=== PATIENT | male | born 1980 | race Caucasian/White ===

== ENCOUNTER 2016-12-18 21:12 | Emergency (ER) | payer SELFPAY ==
[2016-12-18 21:23] VITALS: BP 136/92
[2016-12-18 21:54] LABS: CHLORIDE,CL 105 mmol/L (98-110); SODIUM,NA 137 mmol/L (136-146)
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
== END 2016-12-18 23:52 ==
LOC: MW.ED 21:12
DX: S01.81XA Laceration without foreign body of other part of head, initial encounter (principal); V29.88XA Motorcycle rider (driver) (passenger) injured in other specified transport accidents, initial encounter; Y92.410 Unspecified street and highway as the place of occurrence of the external cause
CPT/HCPCS: 36415; 70450; 70486; 71010; 72125; 80053; 85025; 99285; G0480; 99284; G0390

== ENCOUNTER 2017-06-15 07:46 | Day surgery (SDC) | payer OTHER ==
[~2017-06-15 07:46] MED LIST: Bupivacaine 0.5% 10 ML SDV ONE; Lidocaine 2% 5 ML SDV ONE; Midazolam 1 MG/ML 2 ML SDV ONE; Ondansetron 4 MG/2 ML SDV ONE; Propofol 200 MG/20 ML SDV ONE; Rocuronium 10 MG/ML 10 ML Syringe ONE; Succinylcholine/Normal Saline 200 MG/10 ML Syringe ONE; ceFAZolin 1 GM Vial ONE; fentaNYL 100 MCG/2 ML SDV ONE
[2017-06-15] MEDS ORDERED: Lactated Ringers 1,000 ML IV SCH ×2 (08:00→09:15)
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
[2017-06-15] MEDS ORDERED: ceFAZolin 1 GM Vial ONE (08:22)
[2017-06-15] MEDS ORDERED: Sodium Chloride 0.9% 20 ML ONE (08:22)
[2017-06-15] MEDS ORDERED: fentaNYL 100 MCG/2 ML SDV IVPUSH PRN (08:59)
[2017-06-15] MEDS ORDERED: Acetaminophen/HYDROcodone 325-5 MG Tab PO PRN (09:05)
[2017-06-15] MEDS ORDERED: Ondansetron 4 MG/2 ML SDV IVPUSH PRN (09:05)
[2017-06-15] MEDS ORDERED: Morphine 10 MG/ML Syringe IVPUSH PRN (09:05)
--- NOTE | 2017-06-15 09:10 | PCM.OPNOTE ---
- General Post-Op/Procedure Note Date of Surgery/Procedure: 06/15/17 Operative Procedure(s): Repair incarcerated umbilical hernia Pre Op Diagnosis: Incarcerated umbilical hernia Post-Op Diagnosis: Same Anesthesia Technique: General ET Tube (ASA II) Primary Surgeon: Sheldon Hinkle Fluid Replacement, Intraop: 1,000 EBL in mLs: 5 Condition: Good Free Text/Narrative:: Dictation [id number] CPT CODE 37016
--- NOTE | 2017-06-15 09:37 | PCM.POSTAN ---
POST ANESTHESIA ASSESSMENT - MENTAL STATUS Mental Status: Alert, Oriented - RESPIRATORY Respiratory Status: Respiratory Rate WNL, Airway Patent, O2 Saturation Stable - CARDIOVASCULAR CV Status: Pulse Rate WNL, Blood Pressure Stable - GASTROINTESTINAL GI Status: No Symptoms - PAIN Pain Score: 1 - POST OP HYDRATION Hydration Status: Adequate & Stable - OBSERVATIONS Free Text/Narrative:: no anesthesia problems
[2017-06-15 10:21] VITALS: BP 108/67
--- NOTE | 2017-06-15 17:35 | OR ---
SURGEON: Sheldon Hinkle M.D. DATE OF PROCEDURE: 06/15/2017 OPERATION PERFORMED: Repair of incarcerated umbilical hernia. ANESTHESIA: General endotracheal. ASA CLASSIFICATION: II. PREOPERATIVE DIAGNOSIS: Incarcerated umbilical hernia. POSTOPERATIVE DIAGNOSIS: Incarcerated umbilical hernia. ESTIMATED BLOOD LOSS: 5 mL. FLUID REPLACEMENT: 1000 mL of crystalloid. DESCRIPTION OF PROCEDURE: The patient was taken to the operating room and placed on the operating table in the supine position. Time-out was called for appropriate identification of the patient and procedure. Thigh-high TEDs and sequential compression boots were placed. Following satisfactory attainment of general endotracheal anesthesia, the abdomen was prepped with DuraPrep solution. Sterile drapes were applied. The skin just to the right of the umbilicus was infiltrated with 0.5% Marcaine solution. A skin incision was made and deepened through the subcutaneous tissue obtaining hemostasis with the use of electrocautery. Dissection was carried down to the fascial defect, which was circumferentially dissected free, reducing the contents. Once that was accomplished, the defect was repaired with multiple interrupted 0 Ethibond sutures. All sutures were placed under direct vision and held with a hemostat. Once all sutures had been placed, they were tied down. The patient was then given a Valsalva maneuver to 40 cm of water. The repair was solid. The wound was inspected for hemostasis and small bleeding sites were electrocoagulated. The subcutaneous tissue was reapproximated with running 3-0 Vicryl. The skin edges were reapproximated with subcuticular 4-0 Monocryl, reinforced with Steri-Strips. Sterile pressure dressing with a pair of sterile Tegaderm pad was placed as a dressing. Sponge, needle, and instrument counts were all correct. The patient tolerated the procedure well. Following emergence from anesthesia and extubation, he was taken to recovery room in stable condition. DI / KARLOS /[id number]
== END 2017-06-15 11:05 | disposition home or self-care (01) ==
LOC: MW.SDS 07:46
PROVIDERS: ATTEND Surgery
DX: K42.0 Umbilical hernia with obstruction, without gangrene (principal); F17.210 Nicotine dependence, cigarettes, uncomplicated; E66.9 Obesity, unspecified; Z68.33 Body mass index [BMI] 33.0-33.9, adult; Z96.22 Myringotomy tube(s) status; Z82.49 Family history of ischemic heart disease and other diseases of the circulatory system; Z83.3 Family history of diabetes mellitus; Z98.890 Other specified postprocedural states
CPT/HCPCS: 49587; A9270; J0690; J2250; J2405; J3010; J7120; 00830; J2704

== ENCOUNTER 2017-10-21 06:30 | Emergency (ER) | payer OTHER ==
[2017-10-21 06:45] VITALS: BP 131/76
[2017-10-21] MEDS ORDERED: Sodium Chloride 0.9% 10 ML Syringe FLUSH PRN (06:47)
[2017-10-21] MEDS ORDERED: Sodium Chloride 0.9% 1,000 ML IV ONE (06:47)
[2017-10-21] MEDS ORDERED: Sodium Chloride 0.9% 2.5 ML Syringe FLUSH PRN (06:47)
--- NOTE | 2017-10-21 06:49 | EDM.PDOC ---
ED HPI GENERAL MEDICAL PROBLEM - General Chief Complaint: Abdominal Pain Stated Complaint: LEFT SIDE PAIN AND BLOOD IN STOOL Time Seen by Provider: 10/21/17 06:46 - History of Present Illness INITIAL COMMENTS - FREE TEXT/NARRATIVE: HISTORY AND PHYSICAL: History of present illness: Patient 37-year-old white male presents with a concern of left-sided abdominal pain with intermittent blood per rectum over. If several months he denies fever chills nausea vomiting, or other concerns he denies history of known diverticular disease he denies urinary symptoms denies weight loss. Review of systems: As per history of present illness and below otherwise all systems reviewed and negative. Past medical history: As per history of present illness and as reviewed below otherwise noncontributory. Surgical history: As per history of present illness and as reviewed below otherwise noncontributory. Social history: No reported history of drug or alcohol abuse. Family history: As per history of present illness and as reviewed below otherwise noncontributory. Physical exam: HEENT: Atraumatic, normocephalic, pupils reactive, negative for conjunctival pallor or scleral icterus, mucous membranes moist, throat clear, neck supple, nontender, trachea midline. Lungs: Clear to auscultation, breath sounds equal bilaterally, chest nontender. Heart: S1S2, regular, negative for clicks, rubs, or JVD. Abdomen: Soft, nondistended, nontender. Negative for masses or hepatosplenomegaly. Negative for costovertebral tenderness. Pelvis: Stable nontender. Genitourinary: Deferred. Rectal: Deferred. Extremities: Atraumatic, negative for cords or calf pain. Neurovascular unremarkable. Neuro: Awake, alert, oriented. Cranial nerves II through XII unremarkable. Cerebellum unremarkable. Motor and sensory unremarkable throughout. Exam nonfocal. Diagnostics: CBC CMP PT/INR CT abdomen and pelvis Therapeutics: saline 1 L bolus Impression: #1 left-sided abdominal pain #2 intermittent rectal bleeding Definitive disposition and diagnosis as appropriate pending reevaluation and review of above. Left Lower Abdominal Pain Score (Numeric/FACES): 6 - Related Data Allergies Allergy/AdvReac Type Severity Reaction Status Date / Time No Known Allergies Allergy Verified 10/21/17 06:45 Home Meds: Home Meds . [No Known Home Meds] 02/23/15 [History] Past Medical History - Past Health History Medical/Surgical History: Denies Medical/Surgical History HEENT History: Reports: Other (See Below) Other HEENT History: wears glasses Musculoskeletal History: Reports: Fracture Other Musculoskeletal History: hx fx ribs, wrist and jaw Endocrine/Metabolic History: Reports: Obesity/BMI 30+ - Infectious Disease History Infectious Disease History: Reports: Chicken Pox - Past Surgical History HEENT Surgical History: Reports: Myringotomy w Tube(s), Other (See Below) Other HEENT Surgeries/Procedures: surgery for fx jaw with plating Musculoskeletal Surgical History: Reports: Other (See Below) Other Musculoskeletal Surgeries/Procedures:: leo bunionectomy, ORIF left elbow fx. Social & Family History - Family History Family Medical History: Noncontributory - Tobacco Use Smoking Status *Q: Current Some Day Smoker Years of Tobacco use: 20 Packs/Tins Daily: 0.1 - Caffeine Use Caffeine Use: Reports: None Caffeine Use Comment: 3cups/day - Alcohol Use Days Per Week of Alcohol Use: 1 Number of Drinks Per Day: 1 Total Drinks Per Week: 1 - Recreational Drug Use Recreational Drug Use: No ED ROS GENERAL - Review of Systems Review Of Systems: ROS reveals no pertinent complaints other than HPI. ED EXAM, GENERAL - Physical Exam Exam: See Below (See dictation) Course - Vital Signs Last Recorded V/S: Last Vital Signs Temp 36.8 C 10/21/17 06:43 Pulse 64 10/21/17 06:43 Resp 18 10/21/17 06:43 BP 131/76 10/21/17 06:43 Pulse Ox 96 10/21/17 06:43 - Orders/Labs/Meds Orders: Active Orders 24 hr Category Date Time Status Abdomen Pelvis wo Cont [CT] Stat Exams 10/21/17 06:47 Taken UA W/MICROSCOPIC [URIN] Stat Lab 10/21/17 08:35 Ordered Sodium Chloride 0.9% [Saline Flush] Med 10/21/17 06:47 Active 10 ml FLUSH ASDIRECTED PRN Sodium Chloride 0.9% [Saline Flush] Med 10/21/17 06:47 Active 2.5 ml FLUSH ASDIRECTED PRN Saline Lock Insert [OM.PC] Stat Oth 10/21/17 06:46 Ordered Medication Orders Sodium Chloride (Saline Flush) 10 ml FLUSH ASDIRECTED PRN PRN Reason: Keep Vein Open Last Admin: 10/21/17 07:18 Dose: 10 ml Sodium Chloride (Saline Flush) 2.5 ml FLUSH ASDIRECTED PRN PRN Reason: Keep Vein Open Last Admin: 10/21/17 07:18 Dose: 2.5 ml Labs: Laboratory Tests 10/21/17 10/21/17 10/21/17 Range/Units 06:55 06:55 06:55 WBC 8.29 (4.0-11.0) K/uL RBC 5.14 (4.50-5.90) M/uL Hgb 15.8 (13.0-17.0) g/dL Hct 44.6 (38.0-50.0) % MCV 86.8 (80.0-98.0) fL MCH 30.7 (27.0-32.0) pg MCHC 35.4 (31.0-37.0) g/dL RDW Std Deviation 40.4 (28.0-62.0) fl RDW Coeff of Christina 13 (11.0-15.0) % Plt Count 196 (150-400) K/uL MPV 9.90 (7.40-12.00) fL Neut % (Auto) 58.1 (48.0-80.0) % Lymph % (Auto) 31.2 (16.0-40.0) % [place] % (Auto) 8.9 (0.0-15.0) % Eos % (Auto) 1.3 (0.0-7.0) % Baso % (Auto) 0.5 (0.0-1.5) % Neut # (Auto) 4.8 (1.4-5.7) K/uL Lymph # (Auto) 2.6 H (0.6-2.4) K/uL [place] # (Auto) 0.7 (0.0-0.8) K/uL Eos # (Auto) 0.1 (0.0-0.7) K/uL Baso # (Auto) 0.0 (0.0-0.1) K/uL Nucleated RBC % 0.0 /100WBC Nucleated RBCs # 0 K/uL INR 0.96 Sodium 141 (136-148) mmol/L Potassium 4.0 (3.5-5.1) mmol/L Chloride 105 (98-107) mmol/L Carbon Dioxide 26.6 (21.0-32.0) mmol/L BUN 11 (7.0-18.0) mg/dL Creatinine 1.2 (0.8-1.3) mg/dL Est Cr Clr Drug Dosing 78.03 mL/min Estimated GFR (MDRD) > 60.0 ml/min Glucose 101 (74-106) mg/dL Calcium 8.7 (8.5-10.1) mg/dL Total Bilirubin 0.8 (0.2-1.0) mg/dL AST 20 (15-37) IU/L ALT 39 (14-63) IU/L Alkaline Phosphatase 59 (46-116) U/L Total Protein 7.5 (6.4-8.2) g/dL Albumin 3.8 (3.4-5.0) g/dL Globulin 3.7 H (2.0-3.5) g/dL Albumin/Globulin Ratio 1.0 L (1.3-2.8) Lipase 124 (73-393) U/L Urine Color Urine Appearance Urine pH (5.0-8.0) Ur Specific Bradner (1.001-1.035) Urine Protein (NEGATIVE) mg/dL Urine Glucose (UA) (NEGATIVE) mg/dL Urine Ketones (NEGATIVE) mg/dL Urine Occult Blood (NEGATIVE) Urine Nitrite (NEGATIVE) Urine Bilirubin (NEGATIVE) Urine Urobilinogen (<2.0) EU/dL Ur Leukocyte Esterase (NEGATIVE) Urine RBC (0-2/HPF) Urine WBC (0-5/HPF) Ur Epithelial Cells (NONE-FEW) Amorphous Sediment (NEGATIVE) Urine Bacteria (NEGATIVE) 10/21/17 Range/Units 08:35 WBC (4.0-11.0) K/uL RBC (4.50-5.90) M/uL Hgb (13.0-17.0) g/dL Hct (38.0-50.0) % MCV (80.0-98.0) fL MCH (27.0-32.0) pg MCHC (31.0-37.0) g/dL RDW Std Deviation (28.0-62.0) fl RDW Coeff of Christina (11.0-15.0) % Plt Count (150-400) K/uL MPV (7.40-12.00) fL Neut % (Auto) (48.0-80.0) % Lymph % (Auto) (16.0-40.0) % [place] % (Auto) (0.0-15.0) % Eos % (Auto) (0.0-7.0) % Baso % (Auto) (0.0-1.5) % Neut # (Auto) (1.4-5.7) K/uL Lymph # (Auto) (0.6-2.4) K/uL [place] # (Auto) (0.0-0.8) K/uL Eos # (Auto) (0.0-0.7) K/uL Baso # (Auto) (0.0-0.1) K/uL Nucleated RBC % /100WBC Nucleated RBCs # K/uL INR Sodium (136-148) mmol/L Potassium (3.5-5.1) mmol/L Chloride (98-107) mmol/L Carbon Dioxide (21.0-32.0) mmol/L BUN (7.0-18.0) mg/dL Creatinine (0.8-1.3) mg/dL Est Cr Clr Drug Dosing mL/min Estimated GFR (MDRD) ml/min Glucose (74-106) mg/dL Calcium (8.5-10.1) mg/dL Total Bilirubin (0.2-1.0) mg/dL AST (15-37) IU/L ALT (14-63) IU/L Alkaline Phosphatase (46-116) U/L Total Protein (6.4-8.2) g/dL Albumin (3.4-5.0) g/dL Globulin (2.0-3.5) g/dL Albumin/Globulin Ratio (1.3-2.8) Lipase (73-393) U/L Urine Color DARK YELLOW Urine Appearance CLEAR Urine pH 6.5 (5.0-8.0) Ur Specific Bradner 1.020 (1.001-1.035) Urine Protein NEGATIVE (NEGATIVE) mg/dL Urine Glucose (UA) NEGATIVE (NEGATIVE) mg/dL Urine Ketones NEGATIVE (NEGATIVE) mg/dL Urine Occult Blood NEGATIVE (NEGATIVE) Urine Nitrite NEGATIVE (NEGATIVE) Urine Bilirubin NEGATIVE (NEGATIVE) Urine Urobilinogen 0.2 (<2.0) EU/dL Ur Leukocyte Esterase NEGATIVE (NEGATIVE) Urine RBC 0-2 (0-2/HPF) Urine WBC 0-2 (0-5/HPF) Ur Epithelial Cells FEW (NONE-FEW) Amorphous Sediment FEW (NEGATIVE) Urine Bacteria FEW (NEGATIVE) Meds: Medications Generic Name Dose Route Start Last Admin Trade Name Freq PRN Reason Stop Dose Admin Sodium Chloride 10 ml 10/21/17 06:47 10/21/17 07:18 Saline Flush FLUSH 10 ml ASDIRECTED PRN Administration Keep Vein Open Sodium Chloride 2.5 ml 10/21/17 06:47 10/21/17 07:18 Saline Flush FLUSH 2.5 ml ASDIRECTED PRN Administration Keep Vein Open Discontinued Medications Generic Name Dose Route Start Last Admin Trade Name Freq PRN Reason Stop Dose Admin Sodium Chloride 1,000 mls @ 999 mls/hr 10/21/17 06:47 10/21/17 07:18 Normal Saline IV 10/21/17 07:47 999 mls/hr STAT ONE Administration Departure - Departure Time of Disposition: 09:17 Disposition: Home, Self-Care 01 Condition: Good Clinical Impression: Abdominal pain, Epiploic appendagitis - Discharge Information Referrals: PCP,None [Primary Care Provider] - Forms: ED Department Discharge Additional Instructions: The following information is given to patients seen in the emergency department who are being discharged to home. This information is to outline your options for follow-up care. We provide all patients seen in our emergency department with a follow-up referral. The need for follow-up, as well as the timing and circumstances, are variable depending upon the specifics of your emergency department visit. If you don't have a primary care physician on staff, we will provide you with a referral. We always advise you to contact your personal physician following an emergency department visit to inform them of the circumstance of the visit and for follow-up with them and/or the need for any referrals to a consulting specialist. The emergency department will also refer you to a specialist when appropriate. This referral assures that you have the opportunity for followup care with a specialist. All of these measure are taken in an effort to provide you with optimal care, which includes your followup. Under all circumstances we always encourage you to contact your private physician who remains a resource for coordinating your care. When calling for followup care, please make the office aware that this follow-up is from your recent emergency room visit. If for any reason you are refused follow-up, please contact the [facility] emergency department at and asked to speak to the emergency department charge nurse. [facility] - General Surgery Professional Building [address] [place] [address], [address] [place] [address] Follow-up Gen. surgery above push fluids hydrocodone as prescribed return as needed as discussed - My Orders Last 24 Hours: My Active Orders 10/21/17 06:46 Saline Lock Insert [OM.PC] Stat 10/21/17 06:47 Abdomen Pelvis wo Cont [CT] Stat Sodium Chloride 0.9% [Saline Flush] 10 ml FLUSH ASDIRECTED PRN Sodium Chloride 0.9% [Saline Flush] 2.5 ml FLUSH ASDIRECTED PRN 10/21/17 08:35 UA W/MICROSCOPIC [URIN] Stat - Assessment/Plan Last 24 Hours: My Active Orders 10/21/17 06:46 Saline Lock Insert [OM.PC] Stat 10/21/17 06:47 Abdomen Pelvis wo Cont [CT] Stat Sodium Chloride 0.9% [Saline Flush] 10 ml FLUSH ASDIRECTED PRN Sodium Chloride 0.9% [Saline Flush] 2.5 ml FLUSH ASDIRECTED PRN 10/21/17 08:35 UA W/MICROSCOPIC [URIN] Stat
[2017-10-21 07:22] LABS: CHLORIDE,CL 105 mmol/L (98-107); SODIUM,NA 141 mmol/L (136-148)
--- NOTE | 2017-10-21 15:34 | CT ---
EXAM DATE: 10/21/17 PATIENT'S AGE: 37 Patient: YESICA GILL Facility: [place], [place] Site . Site : 1980 Study: CT Abdomen/Pelvis [id number]/23/2018 7:44:29 AM Ordering Physician: Praveen Cummings Final Report: INDICATION: Pain. TECHNIQUE: Noncontrast CT of the abdomen and pelvis. FINDINGS: CT changes compatible with epiploic appendagitis within the left lower quadrant. Please see image 95 series 201. Normal appendix. No bowel obstruction or ileus and no ascites or lymphadenopathy. The unenhanced liver, spleen, pancreas, gallbladder, both adrenal glands, both kidneys, abdominal aorta, iliac arteries, inferior vena cava, urinary bladder, prostate, and seminal vesicles are normal. The included skeleton is negative for acute fracture. IMPRESSION: CT changes compatible with epiploic appendagitis within the left lower quadrant. Please note that all CT scans at this facility use dose modulation, iterative reconstruction, and/or weight-based dosing when appropriate to reduce radiation dose to as low as reasonably achievable. Dictated by Clifton Mcgill MD @ Oct 21 2017 7:48AM (Electronic Signature) Report Signed by Proxy. [facility] MED[facility] CENTERAlfonso
== END 2017-10-21 09:32 | disposition home or self-care (01) ==
LOC: MW.ED 06:30
DX: K63.89 Other specified diseases of intestine (principal); K62.5 Hemorrhage of anus and rectum; E66.9 Obesity, unspecified; F17.210 Nicotine dependence, cigarettes, uncomplicated
CPT/HCPCS: 36415; 74176; 80053; 81001; 83690; 85025; 85610; 96360; 99284; J7040

== ENCOUNTER 2017-11-02 09:06 | Day surgery (SDC) | payer OTHER ==
[~2017-11-02 09:06] MED LIST changes: -Bupivacaine 0.5% 10 ML SDV ONE; +Lactated Ringers 1,000 ML IV SCH; -Lidocaine 2% 5 ML SDV ONE; -Midazolam 1 MG/ML 2 ML SDV ONE; -Ondansetron 4 MG/2 ML SDV ONE; -Propofol 200 MG/20 ML SDV ONE; -Rocuronium 10 MG/ML 10 ML Syringe ONE; -Succinylcholine/Normal Saline 200 MG/10 ML Syringe ONE; -ceFAZolin 1 GM Vial ONE; -fentaNYL 100 MCG/2 ML SDV ONE
--- NOTE | 2017-11-02 09:35 | PCM.PREANE ---
Preanesthetic Assessment - Anesthesia/Transfusion/Family Hx Anesthesia History: Prior Anesthesia Without Reaction Family History of Anesthesia Reaction: No Transfusion History: No Prior Transfusion(s) Intubation History: Unknown - Review of Systems General: No Symptoms Pulmonary: No Symptoms Cardiovascular: No Symptoms Gastrointestinal: Hematochezia Neurological: No Symptoms Other: Reports: None - Physical Assessment Height: 1.7 m Weight: 100.244 kg ASA Class: 2 Mental Status: Alert & Oriented x3 Airway Class: Mallampati = 2 Dentition: Reports: Normal Dentition, Missing Tooth/Teeth (x1 right upper tooth) Thyro-Mental Finger Breadths: 3 Mouth Opening Finger Breadths: 3 ROM/Head Extension: Full Lungs: Clear to Auscultation, Normal Respiratory Effort Cardiovascular: Regular Rate, Regular Rhythm - Allergies Allergies/Adverse Reactions: Allergies Allergy/AdvReac Type Severity Reaction Status Date / Time No Known Allergies Allergy Verified 10/30/17 08:55 - Blood Blood Available: No - Anesthesia Plan Pre-Op Medication Ordered: None - Acknowledgements Anesthesia Type Planned: MAC Pt an Appropriate Candidate for the Planned Anesthesia: Yes Alternatives and Risks of Anesthesia Discussed w Pt/Guardian: Yes Pt/Guardian Understands and Agrees with Anesthesia Plan: Yes PreAnesthesia Questionnaire - Past Health History Medical/Surgical History: Denies Medical/Surgical History HEENT History: Reports: Other (See Below) Other HEENT History: wears glasses Respiratory History: Reports: Other (See Below) Other Respiratory History: childhood asthma Gastrointestinal History: Reports: None Musculoskeletal History: Reports: Fracture Other Musculoskeletal History: hx fx ribs, wrist and jaw and shattered elbow Endocrine/Metabolic History: Reports: Obesity/BMI 30+ - Infectious Disease History Infectious Disease History: Reports: Chicken Pox - Past Surgical History HEENT Surgical History: Reports: Myringotomy w Tube(s), Other (See Below) Other HEENT Surgeries/Procedures: surgery for fx jaw with plating GI Surgical History: Reports: Hernia, Abdominal (umbilical) Other GI Surgeries/Procedures: hx umbilical hernia repair Musculoskeletal Surgical History: Reports: Other (See Below) Other Musculoskeletal Surgeries/Procedures:: leo bunionectomy, ORIF left elbow fx., removal of hardware to left elbow - SUBSTANCE USE Smoking Status *Q: Former Smoker (quit 2 months ago) Recreational Drug Use History: No - HOME MEDS Home Medications: Home Meds . [No Known Home Meds] 02/23/15 [History] - CURRENT (IN HOUSE) MEDS Current Meds: Current Medications Lactated Ringer's (Ringers, Lactated) 1,000 mls @ 125 mls/hr IV ASDIRECTED [facility] Last Admin: 11/02/17 09:32 Dose: 125 mls/hr
[2017-11-02] MEDS ORDERED: Lidocaine 2% 5 ML SDV ONE (10:04)
[2017-11-02] MEDS ORDERED: Midazolam 1 MG/ML 2 ML SDV ONE (10:05)
[2017-11-02] MEDS ORDERED: fentaNYL 100 MCG/2 ML SDV ONE (10:05)
[2017-11-02] MEDS ORDERED: Propofol 200 MG/20 ML SDV ONE ×2 (10:05→10:55)
[2017-11-02] MEDS ORDERED: Lactated Ringers 1,000 ML IV SCH (11:00)
--- NOTE | 2017-11-02 11:02 | PCM.OPNOTE ---
- General Post-Op/Procedure Note Date of Surgery/Procedure: 11/02/17 Operative Procedure(s): Colonoscopy with snare sigmoid colon polypectomy Pre Op Diagnosis: Intermittent rectal bleeding. Change in bowel habits. Post-Op Diagnosis: Sigmoid polyp. Anesthesia Technique: MAC (ASA II) Primary Surgeon: Sheldon Hinkle Condition: Good Free Text/Narrative:: DICTATION [id number] CPT CODE 21285
[2017-11-02 11:32] VITALS: BP 111/73
--- NOTE | 2017-11-02 12:20 | PCM48HPAN ---
Post Anesthesia Note - EVALUATION WITHIN 48HRS OF ANESTHETIC Vital Signs in Normal Range: Yes Patient Participated in Evaluation: Yes Respiratory Function Stable: Yes Airway Patent: Yes Cardiovascular Function Stable: Yes Hydration Status Stable: Yes Pain Control Satisfactory: Yes Nausea and Vomiting Control Satisfactory: Yes Mental Status Recovered: Yes Resp Rate: 9 - COMMENTS/OBSERVATIONS Free Text/Narrative:: no anesthesia problems
--- NOTE | 2017-11-02 14:20 | OR ---
SURGEON: Sheldon Hinkle M.D. DATE OF PROCEDURE: 11/02/2017 OPERATION PERFORMED: Colonoscopy with snare sigmoid polypectomy. ANESTHESIA: MAC. ASA CLASSIFICATION: II. PREOPERATIVE DIAGNOSIS: Intermittent rectal bleeding. POSTOPERATIVE DIAGNOSIS: Sigmoid polyp. DESCRIPTION OF PROCEDURE: The patient was taken to the endoscopy room and positioned on the endoscopy table in the left lateral decubitus position. Time-out was called for appropriate identification of the patient and procedure. Monitored anesthesia care was provided. The colonoscope was inserted into the rectum and advanced without difficulty to the cecum where the colonoscope was retroflexed to visualize the ascending colon from below. The colonoscope was then straightened and slowly withdrawn. The cecum, ascending colon, hepatic flexure, transverse colon, splenic flexure, and descending colon showed no tumors, polyps, diverticula, angiodysplasia, or evidence of inflammatory bowel disease. A large polyp had been seen in the sigmoid colon as the scope was inserted. This polyp was again identified at approximately 40 cm from the anal verge. Using the snare electrocautery, the base of the polyp was cauterized and transected. The polyp was grabbed with suction on the scope and the scope was withdrawn recovering the polyp. The colonoscope was then reinserted to inspect the polypectomy site, which was noted to be clean and dry. Photographs pre and post polypectomy were obtained. The colonoscope was then withdrawn to the rectum and retroflexed to visualize the anal orifice from above. No tumors, polyps, or acute hemorrhoidal changes were noted. The colonoscope was then removed with the patient having tolerated the procedure well. He was taken to recovery room in stable condition. DI [facility] /[id number]
== END 2017-11-02 12:07 | disposition home or self-care (01) ==
LOC: MW.SDS 09:06
PROVIDERS: ATTEND Surgery
DX: K62.5 Hemorrhage of anus and rectum (principal); R19.4 Change in bowel habit; D12.5 Benign neoplasm of sigmoid colon; J45.909 Unspecified asthma, uncomplicated; E66.9 Obesity, unspecified; Z68.34 Body mass index [BMI] 34.0-34.9, adult; Z87.891 Personal history of nicotine dependence
CPT/HCPCS: 45385; J2250; J3010; J7120; 00811; 88305; J2704